=== PATIENT | male | born 1945 | race Caucasian/White ===

== ENCOUNTER 2019-09-30 10:42 | Emergency (ER) | payer MEDICARE, OTHER, SELFPAY ==
--- NOTE | 2019-09-30 10:56 | ED.URI ---
HPI - URI/Sore Throat General Chief Complaint: Upper Respiratory Infection Stated Complaint: Possible Sinus infection Time Seen by Provider: 09/30/19 11:00 Source: patient and RN notes reviewed Mode of arrival: ambulatory Limitations: no limitations History of Present Illness HPI Narrative: 74-year-old male presents with concern for 1 week history of nasal congestion, hoarseness, postnasal drainage. Reports yellow-colored phlegm. Denies taking hgjn-oed-veychnx medications for his symptoms. Denies taking any medicines for seasonal allergies. Denies fever, body aches, reports occasional sweats. MD elicited complaint: nasal congestion Related Data Home Medications Medication Instructions Recorded Confirmed finasteride mg 09/30/19 rivaroxaban [Xarelto] mg 09/30/19 tamsulosin mg PO 09/30/19 varenicline [Chantix] mg 09/30/19 Allergies Allergy/AdvReac Type Severity Reaction Status Date / Time No Known Allergies Allergy Unverified 04/13/15 16:20 Review of Systems Review of Systems: Narrative: CONSTITUTIONAL: Denies malaise, chills, or fever. Reports sweats EYES: Denies visual changes, redness, or discharge. ENT: Reports rhinorrhea, congestion. Denies sinus pain, otalgia and sore throat. CARDIOVASCULAR: Denies chest pain, palpitations, or edema. RESPIRATORY: Reports occasional cough. Denies dyspnea. GASTROINTESTINAL: Denies abdominal pain, nausea, vomiting, diarrhea SKIN: Denies rash or itching. MUSCULOSKELETAL: Denies myalgia. NEUROLOGIC: Denies headache. All systems reviewed & are unremarkable except as noted in HPI and below PMFSH Family History Family History (Updated 01/11/14 @ 07:13 by DOCTOR UNKNOWN) Father Family history of malignant neoplasm Sibling Family history of malignant neoplasm Social History Social History Smoking status: Former smoker Alcohol intake: never Comments At time of signature, agree with nursing past medical, surgical, social and family history. There is no relevant family history pertinent to the presenting complaint Exam Narrative: Exam Narrative: GENERAL: Well-appearing, well-nourished, and in no acute distress. HEAD: Normocephalic EYES: PERRLA, conjunctivae clear ENT: Nares clear, turbinates edematous and erythematous, yellow discharge. Mucous membranes moist. TM pearly zheng with dull light reflex bilaterally; no tragal tenderness. Oropharynx not erythematous without lesions. Tonsils not enlarged and without exudate, no drooling, no hoarseness, no trismus, uvula midline. NECK: Supple. No lymphadenopathy CHEST: Clear to auscultation, breath sounds equal. No wheezing, rhonchi, rales, or stridor. No respiratory distress, speaks in full sentences. HEART: Regular rate and rhythm. No murmur heard. SKIN: Warm, dry, no rash. NEURO: Alert and oriented x3. PSYCH: Normal mood and affect Course Course Emergency Course: Patient is aware of diagnosis, understands and agrees to treatment plan. Anticipatory guidance given. Patient agrees to follow-up as directed and is aware of reasons to seek care at the emergency department. Portions of this record may have been created with voice recognition software Vital Signs Vital signs: Vital Signs Temperature 98.4 F 09/30/19 11:00 Pulse Rate 86 09/30/19 11:00 Respiratory Rate 16 09/30/19 11:00 Blood Pressure 149/76 H 09/30/19 11:00 Pulse Oximetry 98 09/30/19 11:00 Temperature 98.4 F 09/30/19 11:00 Pulse Rate 86 09/30/19 11:00 Respiratory Rate 16 09/30/19 11:00 Blood Pressure 149/76 H 09/30/19 11:00 Pulse Oximetry 98 09/30/19 11:00 Reviewed. Patient has history of hypertension MDM - URI/Sore Throat MDM Narrative Medical decision making narrative: Differential diagnosis considered: Strep pharyngitis, allergic rhinitis, upper respiratory tract infection, sinusitis, rhinosinusitis, nasopharyngitis. viral pharyngitis, otitis media, otitis externa, pneumonia, bronchitis, viral cough syndrome, vir
[2019-09-30 11:00] VITALS: BP 149/76; PULSE 86; RESP 16; TEMP 36.9; O2SAT 98
== END 2019-09-30 11:15 | disposition home or self-care (01) ==
PROVIDERS: Emergency Provider Nurse Practitioner; PCP Family Medicine
DX: J01.80 Other acute sinusitis (principal); E78.00 Pure hypercholesterolemia, unspecified
CPT/HCPCS: 99213; G0463

== ENCOUNTER 2020-06-17 13:26 | Outpatient (CLI) | payer MEDICARE, SELFPAY ==
--- NOTE | ~2020-06-17 | US_ITS ---
EXAMINATION: US venous doppler LE EXAM DATE: 06/17/2020 14:15 INDICATION: Right calf pain. TECHNIQUE: Multiple grayscale, color flow and Doppler images of the lower extremity deep venous syste ms bilaterally were obtained and reviewed. There is no prior study for comparison. FINDINGS: Right side: The right common femoral, femoral and profunda veins demonstrate normal color flow, respi ratory variation, augmentation and compressibility. Compressibility, color flow confirmed within the right popliteal, posterior tibial, peroneal, and greater saphenous veins. Left side: The left common femoral, femoral and profunda veins demonstrate normal color flow, respira tory variation, augmentation and compressibility. Compressibility, color flow confirmed within the l eft popliteal, posterior tibial, peroneal, and greater saphenous veins. IMPRESSION: 1. No lower extremity deep venous thrombosis bilaterally. Reviewed, dictated and finalized at location B. OL ADMINISTRATOR
--- NOTE | ~2020-06-17 | XR_ITS ---
EXAMINATION: XR knee LT 2V DATE: 06/17/2020 13:53 INDICATION: Medial left knee pain. TECHNIQUE: 2 views of left knee were obtained. COMPARISON: None. FINDINGS: Bone alignment is normal. No fracture. There is mild tricompartmental osteoarthritis. No kn ee joint effusion. IMPRESSION: 1. Mild left knee osteoarthritis. Reviewed, dictated and finalized at location A. ALK DEVELOPER
== END 2020-06-17 13:27 | disposition home or self-care (01) ==
LOC: ANHIMG 13:35
PROVIDERS: PCP Family Medicine; Visit Provider Physician Assistant Medical
DX: M17.12 Unilateral primary osteoarthritis, left knee (principal)
CPT/HCPCS: 73560; 93970

== ENCOUNTER 2021-09-30 16:36 | Emergency (ER) | payer MEDICARE, SELFPAY ==
[2021-09-30 16:52] VITALS: BP 134/72; PULSE 114; RESP 18; TEMP 36.4; O2SAT 98
--- NOTE | 2021-09-30 17:06 | ED.GENADULT ---
HPI - General Adult General Chief complaint: Fall Stated complaint: Lower Back Pain due to fall,Cough Time Seen by Provider: 09/30/21 17:30 Mode of arrival: ambulatory Limitations: no limitations History of Present Illness HPI narrative: 76-year-old male presents with multiple complaints. Reports low back pain after falling off and extension ladder on . Reports he hit the ground and is having bilateral low back pain. He also reports that he has been having a productive cough that causes his ribs to hurt when he coughs, reports symptoms started over 1 week ago.. Reports he has been using IcyHot for his back and bedu-uze-ujqhyhw allergy medicine for his cough. He denies fever, chills, sweats, sore throat. Reports postnasal drainage and scratchy throat MD complaint: Cough Related Data Home Medications Medication Instructions Recorded Confirmed rivaroxaban [Xarelto] 2.5 mg PO BID 09/30/19 07/30/21 aspirin 81 mg tablet,delayed 81 mg PO DAILY 07/30/21 09/30/21 release benazepril 10 mg PO DAILY 09/30/21 Allergies Allergy/AdvReac Type Severity Reaction Status Date / Time No Known Allergies Allergy Verified 09/30/21 17:34 Review of Systems Review of Systems: CONSTITUTIONAL: Denies malaise, chills, sweats, or fever. EYES: Denies visual changes, redness, or discharge. ENT: Reports rhinorrhea, scratchy throat. Denies congestion, sinus pain, otalgia or sore throat. CARDIOVASCULAR: Denies chest pain, palpitations, or edema. RESPIRATORY: Reports productive cough. Denies dyspnea. SKIN: Denies rash or itching. MUSCULOSKELETAL: Reports bilateral low back pain. Denies joint pain, or myalgia. NEUROLOGIC: Denies numbness, weakness, or headache. All systems reviewed & are unremarkable except as noted in HPI and below [facility] Past Medical History Medical History BMI 29.0-29.9,adult BMI 30.0-30.9,adult BMI 31.0-31.9,adult Tobacco abuse Surgical History Surgical History Hx of cataract surgery Family History Family History Father Family history of malignant neoplasm Sibling Family history of malignant neoplasm Mother Social History Social History Second hand tobacco smoke exposure: Yes Alcohol intake: current Substance use: never Substance use type: does not use Additional occupation/education comments: [place] [employer]. Gender identity (if verbalized by the patient): Male Comments At time of signature, agree with nursing past medical, surgical, social and family history. There is no relevant family history pertinent to the presenting complaint Exam Narrative: GENERAL: Well-appearing, well-nourished, and in no acute distress. HEAD: Normocephalic, atraumatic. EYES: PERRLA, sclera clear, and EOMI. No nystagmus. ENT: Nares clear, clear discharge. Mucous membranes moist. Oropharynx mildly erythematous without lesions. Tonsils not enlarged and without exudate. NECK: Supple. No lymphadenopathy. CHEST: No respiratory distress. Clear to auscultation. No bony deformities, no asymmetry. Speaks in full sentences. HEART: Regular rate and rhythm. No murmur heard. Normal peripheral pulses. MUSCULOSKELETAL: Grossly normal range of motion and strength in all extremities; 5/5 strength with hip flexion and extension, dorsiflexion and extension, knee flexion and extension, plantar flexion and extension. Normal sensation in dermatomal distributions with sensitivity to light touch and pain. No midline back tenderness to palpation. No paraspinal tenderness. Transfers from lying to sitting to standing. SKIN: Warm, dry, no rash. No ecchymosis, erythema, open wounds to back. NEURO: No focal deficits. Alert and oriented x3. Reflexes intact. Normal gait. PSYCH:
== END 2021-09-30 17:50 | disposition home or self-care (01) ==
PROVIDERS: Emergency Provider Nurse Practitioner; PCP Family Medicine
DX: M54.50 Low back pain, unspecified (principal); J40 Bronchitis, not specified as acute or chronic; E78.00 Pure hypercholesterolemia, unspecified; Z86.711 Personal history of pulmonary embolism; Z95.1 Presence of aortocoronary bypass graft
CPT/HCPCS: 99213; G0463

== ENCOUNTER 2022-04-22 10:19 | Emergency (ER) | payer MEDICARE, SELFPAY ==
[2022-04-22 10:36] VITALS: BP 128/59; PULSE 90; RESP 24; TEMP 36.7; O2SAT 98
--- NOTE | 2022-04-22 11:01 | ED.URI ---
HPI - URI/Sore Throat General Chief Complaint: Upper Respiratory Infection Stated Complaint: Cough,Congestion,Sore Throat Time Seen by Provider: 04/22/22 10:43 Source: patient Mode of arrival: ambulatory Limitations: no limitations History of Present Illness HPI Narrative: Patient presents today with a 2 day history of productive cough, sore throat cough chest tightness, postnasal drip, rhinorrhea. Denies fever. He has been using his 's nebulizer treatments without relief. He has tried no nuha-pgi-lqbaczq treatment prior to arrival. Denies any history of COPD or asthma. He had a negative home COVID-19 test yesterday. Related Data Home Medications Medication Instructions Recorded Confirmed aspirin 81 mg tablet,delayed 81 mg PO DAILY 07/30/21 04/22/22 release (Adult Aspirin Regimen) benazepril 10 mg tablet 10 mg PO DAILY 09/30/21 04/22/22 Allergies Allergy/AdvReac Type Severity Reaction Status Date / Time No Known Allergies Allergy Verified 04/22/22 10:48 Review of Systems Review of Systems: CONSTITUTIONAL: Denies body aches, fever, chills, or sweats. EYES: Denies visual changes, redness, or discharge. ENT: Denies congestion, or otalgia.+ sore throat, rhinorrhea, postnasal drip CARDIOVASCULAR: Denies chest pain, palpitations, or edema. RESPIRATORY: Denies dyspnea.+ cough, chest tightness GASTROINTESTINAL: Denies abdominal pain, nausea, vomiting, or diarrhea. GENITOURINARY: Denies dysuria or hematuria. SKIN: Denies rash, itching, or wounds. MUSCULOSKELETAL: Denies back pain, joint pain, or myalgia. NEUROLOGIC: Denies headache, numbness, tingling, or weakness. PSYCH: Denies depression or anxiety. [facility] Past Medical History Medical History BMI 29.0-29.9,adult BMI 30.0-30.9,adult BMI 31.0-31.9,adult Tobacco abuse Surgical History Surgical History Hx of cataract surgery Family History Family History Father Family history of malignant neoplasm Sibling Family history of malignant neoplasm Mother Social History Social History Second hand tobacco smoke exposure: Yes Alcohol intake: current Substance use: never Substance use type: does not use Additional occupation/education comments: [employer]. Gender identity (if verbalized by the patient): Male Comments At time of signature, I have reviewed and agree with nursing past medical, surgical, social and family history unless otherwise noted. Please see nursing chart for further information. There is no relevant family history pertinent to the presenting complaint Exam Narrative: GENERAL: Mildly ill-appearing, well-nourished, and in no acute distress. HEAD: Normocephalic, atraumatic. EYES: EOMI. No redness or drainage. Conjunctivae normal. ENT: Mucous membranes pink and moist. Nares clear. No rhinorrhea. TMs normal bilaterally. Throat mildly erythematous without edema or exudate. Uvula midline. NECK: Normal AROM. Supple. No lymphadenopathy. CHEST: No respiratory distress. Clear to auscultation. HEART: Regular rate and rhythm. No murmur appreciated. Normal peripheral pulses. EXTREMITIES: Normal range of motion. No edema. SKIN: Warm, dry, no rash. Capillary refill normal. Normal skin turgor. NEURO: No focal deficits. Alert and oriented x3. Gait steady. PSYCH: Normal affect. No signs of depression or anxiety. Course Course Level of Care: Express Care Visit Vital Signs Vital signs: Vital Signs Temperature 98.0 F 04/22/22 10:36 Pulse Rate 90 04/22/22 10:36 Respiratory Rate 24 H 04/22/22 10:36 Blood Pressure 128/59 L 04/22/22 10:36 Pulse Oximetry 98 04/22/22 10:36 Oxygen Delivery Room Air 04/22/22 10:36 Temperature
== END 2022-04-22 11:32 | disposition home or self-care (01) ==
PROVIDERS: Emergency Provider Nurse Practitioner; PCP Family Medicine
DX: J06.9 Acute upper respiratory infection, unspecified (principal); Z79.82 Long term (current) use of aspirin; E78.00 Pure hypercholesterolemia, unspecified; Z86.711 Personal history of pulmonary embolism; Z95.1 Presence of aortocoronary bypass graft
CPT/HCPCS: 99213; G0463

== ENCOUNTER 2022-07-09 00:28 | Day surgery (SDC) | payer MEDICARE, SELFPAY ==
[2022-07-08 12:12] VITALS: BMI 30.6
[2022-07-09] VITALS (11 sets, daily range): BP systolic 108–140; BP diastolic 57–82; PULSE 74–91; RESP 18–24; TEMP 36.9; O2SAT 94–98; BMI 31.2
[2022-07-09] MEDS: SODIUM CHLORIDE 0.9% IV 1,000 ML 30 ML IV CONT (10:50)
[2022-07-09 11:02] LABS: Anion Gap 5 mmol/L (8-16); Blood Urea Nitrogen 13 mg/dL (9-20); Calcium 8.4 mg/dL (8.4-10.2); Carbon Dioxide 25 mmol/L (22-30); Chloride 105 mmol/L (98-107); Estimated CRCL calculation 73 ml/min; Estimated Glomerular Filt Rate > 60; Glucose 95 mg/dL (65-110); Magnesium 2.1 mg/dL (1.6-2.3); Sodium 135 mmol/L (137-145)
--- NOTE | 2022-07-09 11:30 | PM.IMHP ---
H&P: HPI History of Present Illness Date/Time: 07/09/22 11:30 Chief Complaint: Atrial fibrillation Narrative: 77-year-old with CAD found to be in atrial fibrillation in office. Start anticoagulation here today for cardioversion Review of Systems Review of Systems: All systems reviewed & are unremarkable except as noted in HPI and below ENT: Denies Normal hearing present Cardiovascular: Cardiovascular: Denies chest pain PMFSH Past Medical History Medical History BMI 29.0-29.9,adult BMI 30.0-30.9,adult BMI 31.0-31.9,adult Tobacco abuse Surgical History Surgical History Hx of cataract surgery Family History Family History Father Family history of malignant neoplasm Sibling Family history of malignant neoplasm Mother Social History Social History Smoking packs per day: 0.5 Smoking cigarettes per day: 10.0 Years smoked: 45 Smoking pack-years: 22.50 Smoking status: Current every day smoker Tobacco type: cigarettes Second hand tobacco smoke exposure: Yes Alcohol intake: current Alcohol use details: 6-8 beers per year Substance use: never Substance use type: does not use Living arrangements: with family Occupation/Education: retired Additional occupation/education comments: [employer]. Gender identity (if verbalized by the patient): Male Spiritual care concerns: No Meds Home Medications and Allergies Home Medications Medication Instructions Recorded Confirmed Type aspirin 81 mg tablet,delayed 81 mg PO BID 07/30/21 07/09/22 History release (Adult Aspirin Regimen) atorvastatin 20 mg tablet 20 mg PO DAILY #90 tabs 04/28/22 07/08/22 Rx benazepril 10 mg tablet 10 mg PO DAILY #90 tabs 04/28/22 07/09/22 Rx finasteride 5 mg tablet 5 mg PO DAILY #90 tabs 04/28/22 07/08/22 Rx tamsulosin 0.4 mg capsule 0.4 mg PO DAILY #90 caps 04/28/22 07/09/22 Rx rivaroxaban 20 mg tablet (Xarelto) 20 mg PO DAILY 07/08/22 07/08/22 History Allergies Allergy/AdvReac Type Severity Reaction Status Date / Time No Known Allergies Allergy Verified 07/09/22 11:05 Vital Signs Vital Signs - 24 hr 07/09/22 10:45 Temperature 36.9 C Pulse Rate 83 Respiratory Rate 20 Blood Pressure 130/82 Pulse Oximetry 96 Oxygen Delivery Room Air Exam Narrative: appears stated age Const: General: comfortable HENMT: Face/Nose/Sinus: Normal nares present Eyes: Sclera: sclerae normal Neck: Neck: not supple Chest: Other: no chest wall pain on palpatio Resp: Effort & Inspection: normal respiratory effort Cardio: Rate: regular rate Rhythm: abnormal rhythm irregularly irregular GI: GI Palp: Yes Soft to palpation Skin: General skin exam: normal color Neuro: Speech: normal speech Extrem: General: normal to inspection Psych: Mental Status: mental status grossly normal H&P: Results Labs Labs: [facility] 07/09/22 10:46 Sodium 135 L Potassium 4.0 Chloride 105 Carbon Dioxide 25 BUN 13 Creatinine 0.90 Glucose 95 Calcium 8.4 Assessment and Plan Assessment and plan (1) Atrial fibrillation: Code(s): I48.91 - Unspecified atrial fibrillation Status: Acute Assessment and Plan: continue anticoagulation. Outpatient elective cardioversion today.
--- NOTE | 2022-07-09 11:32 | WPDMODSED ---
Moderate Sedation Note-Pt Data Patient Data Diagnosis: Atrial fibrillation Present Complaint: atrial fibrillation Procedure to be performed/Plan: elective electrical cardioversion Moderate sedation Allergies Allergy/AdvReac Type Severity Reaction Status Date / Time No Known Allergies Allergy Verified 07/09/22 11:05 Home Medications Medication Instructions Recorded Confirmed Type aspirin 81 mg tablet,delayed 81 mg PO BID 07/30/21 07/09/22 History release (Adult Aspirin Regimen) atorvastatin 20 mg tablet 20 mg PO DAILY #90 tabs 04/28/22 07/08/22 Rx benazepril 10 mg tablet 10 mg PO DAILY #90 tabs 04/28/22 07/09/22 Rx finasteride 5 mg tablet 5 mg PO DAILY #90 tabs 04/28/22 07/08/22 Rx tamsulosin 0.4 mg capsule 0.4 mg PO DAILY #90 caps 04/28/22 07/09/22 Rx rivaroxaban 20 mg tablet (Xarelto) 20 mg PO DAILY 07/08/22 07/08/22 History Current Medications: Active Medications Sodium Chloride (Normal Saline Iv) 1,000 mls @ 30 mls/hr IV CONT .Q24H ROXANA Last Admin: 07/09/22 10:50 Dose: 30 mls/hr Sedation/Anesthesia: No previous sedation/anesthesia problems (including family history). [facility] Past Medical History Medical History BMI 29.0-29.9,adult BMI 30.0-30.9,adult BMI 31.0-31.9,adult Tobacco abuse Surgical History Surgical History Hx of cataract surgery Family History Family History Father Family history of malignant neoplasm Sibling Family history of malignant neoplasm Mother Social History Social History Smoking packs per day: 0.5 Smoking cigarettes per day: 10.0 Years smoked: 45 Smoking pack-years: 22.50 Smoking status: Current every day smoker Tobacco type: cigarettes Second hand tobacco smoke exposure: Yes Alcohol intake: current Alcohol use details: 6-8 beers per year Substance use: never Substance use type: does not use Living arrangements: with family Occupation/Education: retired Additional occupation/education comments: [employer]. Gender identity (if verbalized by the patient): Male Spiritual care concerns: No Mod Sed Physical Exam Physical Exam Pre Procedural Exam: Normal: Appearance, Eyes, Ears, Nose, Neck, Throat, Airway, Lungs, Heart Size, Heart Rate, Neuro Exam, Extremities and Skin and Variation: Heart Rhythm ( irregular irregular) Hours since solid foods: 12 Hours since liquid intake: 12 Mallampati Classification: class II Internal Medicine - PN: Obj Da Vital Signs Vital Signs: Vital Signs - 24 hr 07/09/22 10:45 Temperature 36.9 C Pulse Rate 83 Respiratory Rate 20 Blood Pressure 130/82 Pulse Oximetry 96 Oxygen Delivery Room Air Meds/Results Medications: Active Medications Generic Name Dose Route Start Last Admin Trade Name Freq PRN Reason Stop Dose Admin Sodium Chloride 1,000 mls @ 30 mls/hr 07/09/22 10:00 07/09/22 10:50 Normal Saline Iv IV CONT 30 mls/hr .Q24H ROXANA Administration Labs 07/09/22 10:46 Labs: Laboratory Results - last 24 hr 07/09/22 10:46 Sodium 135 L Potassium 4.0 Chloride 105 Carbon Dioxide 25 Anion Gap 5 L BUN 13 Creatinine 0.90 Estim Creat Clear Calc 73 Estimated GFR > 60 Glucose 95 Calcium 8.4 Magnesium 2.1 ASA Classification/Sedation ASA Classification/Sedation ASA Class: II Emergent: No Risks: Risks, benefits and alternatives explained and patient/family accepted plan for sedation. Patient re-evaluated immediately prior to sedation.
--- NOTE | 2022-07-09 11:45 | ECG_ITS ---
Measurements Intervals [place] Rate: 79 P: OK: 0 QRS: 48 QRSD: 105 T: 4 QT: 363 QTc: 416 Interpretive Statements ATRIAL FIBRILLATION WITH ABERRANT CONDUCTION OR VENTRICULAR PREMATURE COMPLEXES INDETERMINATE AXIS INCOMPLETE RIGHT BUNDLE BRANCH BLOCK [90+ ms QRS DURATION, TERMINAL R IN V1/V2, 40+ ms S IN I/aVL/V4/V5/V6] PROBABLE INFERIOR MYOCARDIAL INFARCTION , PROBABLY OLD [35 ms Q WAVE IN II/aVF] ABNORMAL ECG NO PREVIOUS ECG AVAILABLE FOR COMPARISON Electronically Signed On 07-09-2022 12:06:56 JEWEL BEARING MAKER by Samuel CARDENAS
--- NOTE | 2022-07-09 11:51 | WPDCARDVER ---
Cardioversion Cardioversion Date of procedure: 07/09/22 Procedure: 1. Moderate sedation 2. Electrical cardioversion Pre-op diagnosis: atrial fibrillation Post-op diagnosis: Same Indications: atrial fibrillation Description of procedure: after discussing the risks, benefits alternatives of procedure patient agreeable via verbal and written informed consent. Risks discussed included skin irritation burn, , adverse reaction to anesthesia, shocking into more problematic heart rhythm, stroke. After establishing continuous telemetry monitoring, pulse oxygenation and serial blood pressure assessments, time-out was taken procedure was started. Procedure start time 11:34 a.m. Procedure stop time 11:40 a.m. Complications: None Blood loss: None Sedation: a total of 3 mg of Versed and 50 mcg of fentanyl were given in divided dosages. Medications were administered patient was monitored by Myrna Kiran RN Findings: 2 attempts at restoring sinus rhythm was made. There were no sinus beats following both attempts. First shock was using 175 joules of biphasic synchronized energy and a 2nd shock was using 200 joules of biphasic synchronized energy. Conclusion: 1. Unsuccessful outpatient elective electrical cardioversion with 2 attempts made as above. 2. Moderate sedation Plan: Patient will remain on Xarelto. Will pursue rate control strategy as he is relatively asymptomatic anyway. Will see him in the office in a couple of weeks in order sleep study as well as an echocardiogram and stress test. Patient is having frequent PVCs also. Will also consider outpatient monitor to ensure rate control.
== END 2022-07-09 13:07 | disposition home or self-care (01) ==
PROVIDERS: PCP Family Medicine; Visit Provider Internal Medicine Cardiovascular Disease
PROC: 5A2204Z Restoration of Cardiac Rhythm, Single (ICD-10-PCS; principal; 2022-07-09 11:30)
DX: I48.91 Unspecified atrial fibrillation (principal); I25.10 Atherosclerotic heart disease of native coronary artery without angina pectoris; F17.210 Nicotine dependence, cigarettes, uncomplicated; Z79.82 Long term (current) use of aspirin; Z79.01 Long term (current) use of anticoagulants
CPT/HCPCS: 36415; 80048; 83735; 92960; J2250; J3010; J7030

== ENCOUNTER 2022-09-01 18:38 | Emergency (ER) | payer MEDICARE, SELFPAY ==
--- NOTE | ~2022-09-01 | XR_ITS ---
XR chest 2V INDICATION: Productive cough and congestion TECHNIQUE: 2 view chest. FINDINGS: Comparison to multiple prior studies sequentially, with oldest reviewed study dated 2023. There is mild bilateral interstitial prominence and peribronchial cuffing. There is no focal consoli dation, pleural effusion, or pneumothorax. The cardiomediastinal silhouette is normal. There is an age-indeterminate wedge compression fracture of T7. Osteopenia. Status post median sternotomy for CABG. IMPRESSION: 1. Findings most consistent with bronchiolitis versus an atypical or viral pneumonia. Reviewed, dictated and finalized at location A. IMPRESSION: 1. Findings most consistent with bronchiolitis versus an atypical or viral [facility]ne [facility] hospital.
[2022-09-01 18:48] VITALS: BP 144/84; PULSE 82; RESP 16; TEMP 36.8; O2SAT 98
--- NOTE | 2022-09-01 19:04 | ED.URI ---
HPI - URI/Sore Throat General Chief Complaint: Upper Respiratory Infection Stated Complaint: congestion,cough Time Seen by Provider: 09/01/22 19:04 Source: patient Mode of arrival: ambulatory Limitations: no limitations History of Present Illness HPI Narrative: 77-year-old male presents with complaint of cough, shortness of breath with exertion for the past several weeks. Reports that he called his primary care physician about 3 weeks ago and told him his symptoms and was given a Z-Shahram. Patient he states that at times he thought that he had bronchitis and that is when he told them over the phone. States that he has had in the past. states that he never got better with the Z-Shahram. Has been using albuterol inhaler daily. Afebrile. No shortness of breath at this time. Patient again states that he thinks he has bronchitis. No recent chest x-rays. Patient is a current everyday smoker. All systems reviewed and negative except as noted above. Related Data Home Medications Medication Instructions Recorded Confirmed aspirin 81 mg tablet,delayed 81 mg PO BID 07/30/21 09/01/22 release (Adult Aspirin Regimen) rivaroxaban 20 mg tablet (Xarelto) 10 mg PO DAILY 07/08/22 09/01/22 Allergies Allergy/AdvReac Type Severity Reaction Status Date / Time No Known Allergies Allergy Verified 09/01/22 18:50 Review of Systems Review of Systems: CONSTITUTIONAL: Denies fever, chills, or sweats. EYES: Denies visual changes, redness, or discharge. ENT: Denies rhinorrhea, congestion, sore throat, or otalgia. CARDIOVASCULAR: Denies chest pain, palpitations, or edema. RESPIRATORY: Reports cough, chest congestion, shortness of breath with exertion. GASTROINTESTINAL: Denies abdominal pain, nausea, vomiting, or diarrhea. GENITOURINARY: Denies dysuria or hematuria. SKIN: Denies rash or itching. MUSCULOSKELETAL: Denies back pain, joint pain, or myalgia. NEUROLOGIC: Denies headache, numbness, or weakness. PSYCHIATRIC: Denies anxiety or depression. All other systems reviewed are negative, except as documented in HPI. [facility] Past Medical History Medical History BMI 29.0-29.9,adult BMI 30.0-30.9,adult BMI 31.0-31.9,adult Tobacco abuse Surgical History Surgical History Hx of cataract surgery Family History Family History Father Family history of malignant neoplasm Sibling Family history of malignant neoplasm Mother Social History Social History Smoking packs per day: 0.5 Smoking cigarettes per day: 10.0 Years smoked: 45 Smoking pack-years: 22.50 Smoking status: Current every day smoker Tobacco type: cigarettes Second hand tobacco smoke exposure: Yes Alcohol intake: current Alcohol use details: 6-8 beers per year Substance use: never Substance use type: does not use Living arrangements: with family Occupation/Education: retired Additional occupation/education comments: [employer]. Gender identity (if verbalized by the patient): Male Spiritual care concerns: No Comments At time of signature, agree with nursing past medical, surgical, social and family history. There is no relevant family history pertinent to the presenting complaint. Exam Narrative: GENERAL: This is a well-nourished, well-developed patient, in no apparent distress. HEAD: normocephalic, atraumatic. EYES: PERRL. Sclera clear/white. Vision is grossly intact. EARS: External ears normal, auditory canals clear and without drainage, TMs normal without perforation. Hearing grossly intact. NOSE: External nose normal with no obvious nasal discharge, nares without redness, no rhinorrhea. THROAT: Mucous membranes moist, Erythematous and swollen. Patient denies pain. NECK:
== END 2022-09-01 19:36 | disposition home or self-care (01) ==
PROVIDERS: Emergency Provider Nurse Practitioner Family; PCP Family Medicine
DX: J20.9 Acute bronchitis, unspecified (principal); F17.210 Nicotine dependence, cigarettes, uncomplicated; Z79.82 Long term (current) use of aspirin
CPT/HCPCS: 71046; 99213; G0463

== ENCOUNTER 2022-10-06 00:32 | Day surgery (SDC) | payer MEDICARE, SELFPAY ==
[2022-10-05 16:03] VITALS: BMI 31.6
[2022-10-06] VITALS (9 sets, daily range): BP systolic 104–135; BP diastolic 66–89; PULSE 61–74; RESP 14–21; TEMP 36.4; O2SAT 95–98; BMI 31.6
[2022-10-06 07:25] LABS: Basophils Percent Auto 0.4 % (0.2-1.2); Eosinophils Absolute Auto 0.3 K/mm3 (0-0.3); Hematocrit 49.3 % (42.0-52.0); Hemoglobin 16.1 g/dL (14.0-18.0); Immature Granulocyte Absolute 0.02 K/mm3 (0.00-0.031); Immature Granulocyte Percent A 0.3 % (0-0.5); Immature Platelet Fraction Pct 6.3 % (0.9-11.2); Lymphocytes Percent Auto 24.9 % (18.3-44.2); Mean Corpuscular HGB Conc 32.7 g/dl (32-36); Mean Corpuscular Hemoglobin 30.4 pg (26-34); Mean Corpuscular Volume 93.2 fl (80-100); Mean Platelet Volume 10.8 fl (7.4-10.4); Monocytes Absolute Auto 0.7 K/mm3 (0.1-0.6); Monocytes Percent Auto 9.7 % (2.6-8.5); Neutrophils Absolute Auto 4.2 K/mm3 (1.3-6.7); Neutrophils Percent Auto 60.7 % (45.5-73.1); Platelet Count Result 150 k/mm3 (150-375); Red Blood Count 5.29 M/mm3 (4.6-6.20); Red Cell Distribution Width 12.7 % (11.5-14.5); White Blood Count 6.8 K/mm3 (4.5-10.0)
[2022-10-06 07:38] LABS: Anion Gap 4 mmol/L (8-16); Blood Urea Nitrogen 21 mg/dL (9-20); Calcium 8.5 mg/dL (8.4-10.2); Carbon Dioxide 30 mmol/L (22-30); Chloride 106 mmol/L (98-107); Estimated CRCL calculation 67 ml/min; Estimated Glomerular Filt Rate > 60; Glucose 98 mg/dL (65-110); Potassium 4.6 mmol/L (3.4-5.0); Sodium 140 mmol/L (137-145)
--- NOTE | 2022-10-06 09:57 | WPDHPUPDATE1 ---
History and Physical Update Update Date/Time: 10/06/22 09:57 History and Physical has been reviewed, including an updated exam of the patient. There are NO changes in the patient's condition. Risks, benefits, and alternatives have been discussed and questions answered. Patient agrees to proceed with procedure.
--- NOTE | 2022-10-06 09:57 | WPDMODSED ---
Moderate Sedation Note-Pt Data Patient Data Diagnosis: Coronary artery disease, CABG Present Complaint: Abnormal stress test Procedure to be performed/Plan: Coronary angiography, left heart cath, bypass graft angiography, +/- PCI Allergies Allergy/AdvReac Type Severity Reaction Status Date / Time No Known Allergies Allergy Verified 10/06/22 07:12 Home Medications Medication Instructions Recorded Confirmed Type aspirin 81 mg tablet,delayed 81 mg PO BID 07/30/21 10/05/22 History release (Adult Aspirin Regimen) atorvastatin 20 mg tablet 20 mg PO DAILY #90 tabs 04/28/22 10/05/22 Rx benazepril 10 mg tablet 10 mg PO DAILY #90 tabs 04/28/22 10/05/22 Rx finasteride 5 mg tablet 5 mg PO DAILY #90 tabs 04/28/22 10/05/22 Rx tamsulosin 0.4 mg capsule 0.4 mg PO DAILY #90 caps 04/28/22 10/05/22 Rx rivaroxaban 20 mg tablet (Xarelto) 10 mg PO DAILY 07/08/22 10/05/22 History albuterol sulfate 90 mcg/actuation 2 puff inhalation QID PRN 09/01/22 10/05/22 Rx aerosol inhaler shortness of breath or wheezing #8.5 grams benzonatate 200 mg capsule 200 mg PO TID PRN cough #20 caps 09/01/22 10/05/22 Rx inhalational spacing device #1 ea 09/01/22 Rx (Aerochamber Plus Z Stat spacer) guaifenesin 1,200 mg tablet, 1,200 mg PO BID PRN Cough 10/05/22 10/05/22 History extended release 12 hr (Mucinex) metoprolol succinate 25 mg 25 mg PO DAILY 10/05/22 10/05/22 History tablet,extended release 24 hr Current Medications: Active Medications Sodium Chloride (Normal Saline Iv) 500 mls @ 100 mls/hr IV CONT .Q5H ROXANA Sodium Chloride (Normal Saline Iv) 1,000 mls @ 125 mls/hr IV CONT .Q8H ONE Stop: 10/06/22 17:54 Sedation/Anesthesia: No previous sedation/anesthesia problems (including family history). [facility] Past Medical History Medical History BMI 29.0-29.9,adult BMI 30.0-30.9,adult BMI 31.0-31.9,adult Tobacco abuse Surgical History Surgical History Hx of cataract surgery Family History Family History Father Family history of malignant neoplasm Sibling Family history of malignant neoplasm Mother Social History Social History Smoking packs per day: 0.5 Smoking cigarettes per day: 10.0 Years smoked: 22 Smoking pack-years: 11.00 Smoking status: Light tobacco smoker Tobacco type: cigarettes Second hand tobacco smoke exposure: Yes Alcohol intake: current Alcohol use details: 8-9 beer/year or less Substance use: never Substance use type: does not use Living arrangements: with family Occupation/Education: retired Additional occupation/education comments: [employer]. Gender identity (if verbalized by the patient): Male Spiritual care concerns: No Mod Sed Physical Exam Physical Exam Pre Procedural Exam: Normal: Appearance, Lungs, Heart Rate, Heart Rhythm, Neuro Exam, Abdomen, Extremities and Skin Hours since solid foods: 12 Hours since liquid intake: 8 Mallampati Classification: class III Internal Medicine - PN: Obj Da Vital Signs Vital Signs: Vital Signs - 24 hr 10/06/22 07:14 Temperature 36.4 C Pulse Rate 66 Respiratory Rate 14 Blood Pressure 135/69 Pulse Oximetry 98 Oxygen Delivery Room Air Meds/Results Medications: Active Medications Generic Name Dose Route Start Last Admin Trade Name Lauriq PRN Reason Stop Dose Admin Sodium Chloride 500 mls @ 100 mls/hr 10/06/22 07:00 Normal Saline Iv IV CONT .Q5H ROXANA Sodium Chloride 1,000 mls @ 125 mls/hr 10/06/22 09:55 Normal Saline Iv IV CONT 10/06/22 17:54 .Q8H ONE Labs 10/06/22 07:11 10/06/22 07:11 Labs: Laboratory Results - last 24 hr 10/06/22 07:11 WBC 6.8 RBC 5.29 Hgb 16.1 Hct 49.3 MCV 93.2 MCH 3
--- NOTE | 2022-10-06 09:58 | WPDCARDPROC ---
Cardiac Cath Procedure Note Date of procedure:: 10/06/22 Performing physician:: CATHETERIZATION LABORATORY REPORT Procedure Date: 10/06/2022 Data Warehouse Analyst: Chani Benavides M.D., [facility]? Referring Physician: Santiago Christianson M.D. ? Anesthesia: Versed and Fentanyl were ordered and given in my presence at 08:47, procedure ended at 09:48. Supervision of nurse monitored moderate sedation with Versed and Fentanyl was provided for 61 minutes. Total of Versed 1mg and Fentanyl 25mcg were administered by the Medical Doctor Md RN Anh Corey. Pre-op Diagnosis: Coronary artery disease s/p CABG Post-op Diagnosis: 1. Severe [place] multivessel coronary artery disease 2. Patent MUHAMMAD-LAD bypass graft 3. Patent SVG-OM bypass graft 4. Patent radial artery to RCA bypass graft 5. Elevated left ventricular end-diastolic pressure of 29mmHg Procedure(s): 1. Moderate sedation 2. Ultrasound-guided access of the right common femoral artery 3. Coronary angiography 4. Bypass graft angiography 5. Left heart cath 6. Angioseal closure of the right common femoral artery Access Site: Right common femoral artery Brief History and Clinical Indications: Patient is a 77-year-old male with CAD s/p CABG who is referred for [facility] for abnormal stress test. All risks, benefits and alternatives to left heart catheterization with or without percutaneous coronary intervention was discussed at length with the patient. Risk of complications including but not limited to bleeding, infection, arrhythmia, stroke, worsening kidney function, blood loss, groin hematoma, limb loss, emergency coronary artery bypass grafting, and even were discussed with the patient and all questions were answered. The patient understood and wished to proceed. Time out called, patient name, date of , medical record number, allergies, procedure performed, identify Data Warehouse Analyst, patient and staff member concurred with accurate data, procedure carried on. Findings: LEFT HEART CATHETERIZATION FINDINGS: 1. Left main: The left main coronary artery is very short and appears to be diffusely diseased. 2. Left anterior descending: The LAD is AUTO FLEET MAINTENANCE MANAGER in its proximal portion. 3. Ramus: There is a small caliber Ramus branch with diffuse disease 4. Left circumflex: The left circumflex artery has mild diffuse disease. There is an OM vessel which does not have significant obstructive disease. There is retrograde filling from the OM vessel into the SVG bypass graft. 5. Right coronary artery: The RCA is the dominant vessel. The RCA is AUTO FLEET MAINTENANCE MANAGER in its proximal portion. There are [id number] collaterals supplying the RPDA vessel. 6. Left ventricle: A. End-diastolic pressure 29mmHg. B. LV gram deferred. C. No significant gradient across aortic valve on catheter pullback. 7. Bypass graft angiography: A. MUHAMMAD to LAD bypass graft is widely patent without any obstructive disease. Provides antegrade and retrograde flow into the LAD. B. SVG to OM bypass graft is widely patent without any obstructive disease. Provides antegrade flow to the distal OM and retrograde flow into mid OM and LCX vessel. C. Radial artery to RCA bypass graft is widely patent Description of Procedure: Informed consent signed and placed in the chart. Patient transferred to catheter builder room. Prepped and draped in usual sterile fashion. 2% lidocaine in right groin area. Micropuncture needle used to access right common femoral artery with Seldinger technique under fluoroscopic guidance. J wire advanced, micropuncture cannula placed. Right iliofemoral angiogram performed, access confirmed and micropuncture cannula exchanged for 5-FR sheath. 5F FL 5 diagnostic catheter engaged Left Main Coronary Artery. 5F FR 4 diagnostic catheter engaged in the SVG to OM bypass graft. 5F IM diagnostic catheter engaged in the MUHAMMAD to LAD bypass graft. Multiple orthogonal angiogram obtained and reviewed Difficult to engage [place] RCA and the radial artery to RCA
== END 2022-10-06 12:50 | disposition home or self-care (01) ==
PROVIDERS: PCP Family Medicine; Visit Provider Internal Medicine
PROC: 4A023N7 Measurement of Cardiac Sampling and Pressure, Left Heart, Percutaneous Approach (ICD-10-PCS; CPT 93459; principal; 2022-10-06 08:30)
DX: I25.10 Atherosclerotic heart disease of native coronary artery without angina pectoris (principal); Z95.1 Presence of aortocoronary bypass graft; E78.5 Hyperlipidemia, unspecified; I10 Essential (primary) hypertension; Z72.0 Tobacco use; I48.91 Unspecified atrial fibrillation
CPT/HCPCS: 36415; 80048; 85025; 85055; 85610; 93459; A9270; C1760; C1769; C1887; C1894; G0269; J1644; J2250; J3010; J7040

== ENCOUNTER 2022-10-13 08:18 | Outpatient (CLI) | payer MEDICARE, SELFPAY ==
--- NOTE | 2022-10-22 15:04 | WPDSLEEPSTUD ---
Sleep Study Date of Study: 10/13/22 Ordering Provider: Samuel Christianson MD Interpreting Physician: Ina Scanlon MD Sleep Study Type: Split Polysomnogram Height: 1.78 m Weight: 98.883 kg Body Mass Index: 31.2 Neck Circumference (inches): 16.5 [place]: 4 Reason for Sleep Study Hypersomnolence Sleep History Peyman Chadwick is a 77-year-old man with history of coronary artery disease who presents for split night study due to rhythm disturbances. He has had atrial fibrillation with junctional tachycardia, incomplete RBBB. He frequently awakens from sleep short of breath. He does not mention if he awakens at night with heartburn, belching or cough.??He frequently snores. He occasionally snores loudly enough that others complain. He occasionally has breathing problems at night, noted by others or noted personally. He mtz snot report sweating excessively at night or noticing his heart pounding or beating irregularly during the night. He occasionally falls asleep during the day. He never falls asleep involuntarily or falls asleep while driving. He never experiences loss of muscle tone with strong emotion. He never feels paralyzed on waking or falling asleep. He never experiences vivid dreams upon waking or falling asleep. He never feel afraid of going to sleep. He never has nightmares. He occasionally recalls his dreams. He frequently has thoughts racing through his mind. He rarely feels sad or depressed. He frequently feels anxiety or worry about things. He occasionally notices parts of his body jerk. He occasionally kicks during the night. He does not comment on whether or not he has crawling or aching feelings in his legs. He occasionally feels leg pain at night. He never grinds his teeth and never has morning jaw pain. He never feels bothered by pain during the day and is never awakened by pain during the night. He never wakes up feeling stiff, sore, and achy in the morning with pain in his neck, spine, or joints. He reports a 5 lb weight gain in the last year Normal bedtime is around 9:00 p.m. to 10:00 p.m. usually falling asleep easily. He typically gets about 5 hours of sleep per night. His wake up time is variable. He wakes up 3-4 times on an average night. he takes naps in the afternoon or evening. A short nap lasting 10-15 minutes may be refreshing. Most of the time he feels good on awakening. Habits:??Tobacco: Half pack per day Caffeine: 3 servings of coffee. Alcohol: none Recreational substances: none PMF Past Medical History Medical History (Updated 10/22/22 @ 18:52 by Ina Scanlon MD) Atherosclerotic heart disease of [place] coronary artery with angina pectoris 2008 Atrial fibrillation BMI 29.0-29.9,adult BMI 30.0-30.9,adult BMI 31.0-31.9,adult Hypertension Osteoarthritis Tobacco abuse Surgical History Surgical History Hx of cataract surgery Family History Family History Father Family history of malignant neoplasm Sibling Family history of malignant neoplasm Mother Social History Social History Smoking packs per day: 0.5 Smoking cigarettes per day: 10.0 Years smoked: 22 Smoking pack-years: 11.00 Smoking status: Light tobacco smoker Tobacco type: cigarettes Second hand tobacco smoke exposure: Yes Alcohol intake: current Alcohol use details: 8-9 beer/year or less Substance use: never Substance use type: does not use Living arrangements: with family Occupation/Education: retired Additional occupation/education comments: [employer]. Gender identity (if verbalized by the patient): Male Spiritual care concerns: No Medications Home Medications Medication Instructions Recorded Confirmed Type aspirin 81 mg tablet,delayed 81 mg
[2022-10-22 18:19] VITALS: BMI 31.2
== END 2022-10-14 07:04 | disposition home or self-care (01) ==
LOC: ANHCSM 08:20
PROVIDERS: PCP Family Medicine; Visit Provider Internal Medicine Cardiovascular Disease
DX: G47.10 Hypersomnia, unspecified (principal); I48.91 Unspecified atrial fibrillation; G47.33 Obstructive sleep apnea (adult) (pediatric); Z72.821 Inadequate sleep hygiene
CPT/HCPCS: 95811

== ENCOUNTER 2023-03-17 01:08 | Day surgery (SDC) | payer MEDICARE, SELFPAY ==
[2023-03-17 07:22] VITALS: BP 122/72; PULSE 55; RESP 16; TEMP 36.5; O2SAT 98; BMI 30.9
[2023-03-17 07:54] LABS: Anion Gap 5 mmol/L (8-16); Blood Urea Nitrogen 15 mg/dL (9-20); Calcium 8.8 mg/dL (8.4-10.2); Carbon Dioxide 27 mmol/L (22-30); Chloride 105 mmol/L (98-107); Estimated CRCL calculation 73 ml/min; Estimated Glomerular Filt Rate > 60; Glucose 101 mg/dL (65-110); Magnesium 2.2 mg/dL (1.6-2.3); Potassium 4.8 mmol/L (3.4-5.0); Sodium 137 mmol/L (137-145)
--- NOTE | 2023-03-17 09:00 | SUR.PREOP ---
MD had discussion with pt regarding treating his DIANA. Since pt is not compliant with treating his DIANA, MD and pt agreed to abort the electrical cardioversion for now. pt will follow up with MD in office in 2 months. No sedation medications given, pt will be discharged home.
== END 2023-03-17 09:10 | disposition home or self-care (01) ==
PROVIDERS: PCP Family Medicine; Visit Provider Internal Medicine Cardiovascular Disease
PROC: 5A2204Z Restoration of Cardiac Rhythm, Single (ICD-10-PCS; principal; 2023-03-17 08:30)
DX: I48.91 Unspecified atrial fibrillation (principal); Z53.8 Procedure and treatment not carried out for other reasons
CPT/HCPCS: 36415; 80048; 83735; 99213; G0463; J2250; J3010; J7030

== ENCOUNTER 2023-05-25 17:38 | Emergency (ER) | payer MEDICARE, SELFPAY ==
--- NOTE | ~2023-05-25 | XR_ITS ---
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 RESULT: Lines, tubes, and devices: Intact sternotomy wires. Mediastinal surgical clips. Abandoned epicardial pacing wires. Lungs and pleura: Mild bilateral reticular opacities with cuffing. Patchy groundglass perihilar opac ities. Streaky bibasilar atelectasis or scar. Trace right posterior ethmoid angle blunting. Cardiomediastinal silhouette: Stable. Other: No acute osseous or upper abdominal finding. IMPRESSION: Pulmonary opacities may represent pulmonary edema. Infection is not excluded. Trace right pleural eff usion versus chronic pleural scar. Reviewed, dictated and finalized at location K. R SCOOTER MECHANIC IMPRESSION: Pulmonary opacities may represent pulmonary edema. Infection is not excluded. T race right pleural effusion versus chronic pleural scar.
--- NOTE | 2023-05-25 17:49 | ED.URI ---
HPI - URI/Sore Throat General Chief Complaint: Upper Respiratory Infection Stated Complaint: Shortness of Breath, Congestion, Cough Time Seen by Provider: 05/25/23 17:50 Source: patient Mode of arrival: ambulatory Limitations: no limitations History of Present Illness HPI Narrative: 77-year-old male history of AFib, CAD, and HTN presented for c/o cough and nasal congestion for about 10 days. Endorses occasional wheezing and shortness of breath. Denies fatigue, cp, palpitations, n/v/d/f/c. Uses nebulizer occasionally. Not taking anything for symptoms. Tested negative for covid at onset of symptoms. Smokes 1/2ppd. Related Data Home Medications Medication Instructions Recorded Confirmed aspirin 81 mg tablet,delayed 81 mg PO BID 07/30/21 05/25/23 release (Adult Aspirin Regimen) rivaroxaban 20 mg tablet (Xarelto) 10 mg PO DAILY 07/08/22 05/25/23 metoprolol succinate 25 mg 25 mg PO DAILY 10/05/22 05/25/23 tablet,extended release 24 hr Allergies Allergy/AdvReac Type Severity Reaction Status Date / Time No Known Allergies Allergy Verified 05/25/23 17:52 Review of Systems Review of Systems: CONSTITUTIONAL: Denies body aches, fever, chills, or sweats. EYES: Denies visual changes, redness, or discharge. ENT: Reports rhinorrhea, congestion, denies sore throat, or otalgia. CARDIOVASCULAR: Denies chest pain, palpitations, or edema. RESPIRATORY: Reports cough, sob, wheezing. GASTROINTESTINAL: Denies abdominal pain, nausea, vomiting, or diarrhea. GENITOURINARY: Denies dysuria or hematuria. SKIN: Denies rash, itching, or wounds. MUSCULOSKELETAL: Denies back pain, joint pain, or myalgia. NEUROLOGIC: Denies headache, numbness, tingling, or weakness. All systems reviewed & are unremarkable except as noted in HPI and below PMFSH Past Medical History Medical History Atherosclerotic heart disease of [place] coronary artery with angina pectoris 2007 Atrial fibrillation BMI 29.0-29.9,adult BMI 30.0-30.9,adult BMI 31.0-31.9,adult BMI 32.0-32.9,adult Hypertension Osteoarthritis Tobacco abuse Surgical History Surgical History Hx of cataract surgery S/P CABG x 3 Family History Family History Father Family history of malignant neoplasm Sibling Family history of malignant neoplasm Mother Social History Social History Smoking packs per day: 0.5 Smoking cigarettes per day: 10.0 Years smoked: 22 Smoking pack-years: 11.00 Smoking status: Light tobacco smoker Tobacco type: cigarettes Second hand tobacco smoke exposure: Yes Alcohol intake: current Alcohol use details: 8-8 beer/year Substance use: never Substance use type: does not use Living arrangements: with family Occupation/Education: retired Additional occupation/education comments: [employer]. Gender identity (if verbalized by the patient): Male Spiritual care concerns: No Comments At time of signature, I have reviewed and agree with nursing past medical, surgical, social and family history unless otherwise noted. Please see nursing chart for further information. There is no relevant family history pertinent to the presenting complaint Exam Narrative: GENERAL: Well-appearing, in no acute distress. EYES: EOMI. No redness or drainage. Conjunctivae normal. ENT: Mucous membranes pink and moist. Nasal congestion. TMs normal bilaterally. Throat normal. Uvula midline. NECK: Normal AROM. Supple. CHEST: No respiratory distress. Lungs clear to all yee, noted some audible wheezing. HEART: Regular rate and rhythm. No murmur appreciated. EXTREMITIES: Normal range of motion. 2+ bilateral LE edema, reports chronic/baseline SKIN: Warm, dry, no rash. Bruising noted. C
[2023-05-25 17:50] VITALS: BP 145/55; PULSE 56; RESP 20; TEMP 36.3; O2SAT 98
[2023-05-25 18:02] VITALS: BP 145/55; PULSE 56; RESP 20; TEMP 36.3; O2SAT 98
== END 2023-05-25 18:55 | disposition home or self-care (01) ==
PROVIDERS: Emergency Provider Nurse Practitioner Family; PCP Family Medicine
DX: J40 Bronchitis, not specified as acute or chronic (principal); I48.91 Unspecified atrial fibrillation; I25.10 Atherosclerotic heart disease of native coronary artery without angina pectoris; I10 Essential (primary) hypertension; F17.210 Nicotine dependence, cigarettes, uncomplicated; Z79.82 Long term (current) use of aspirin; Z79.01 Long term (current) use of anticoagulants
CPT/HCPCS: 71046; 99213; G0463

== ENCOUNTER → 2023-06-16 08:57 | Outpatient (CLI) | payer MEDICARE, SELFPAY ==
--- NOTE | ~2023-06-16 | XR_ITS ---
XR chest 2V DATE: 06/16/2023 09:11 INDICATION: Cough TECHNIQUE: 2 views COMPARISON: 06/04/2023 2 view chest FINDINGS: Stable moderately prominent anterior wedge compression fracture deformity of approximately T7. Osteopenia. Status post sternotomy and coronary bypass graft surgery. Heart size is borderline. Aortic calcificat ion. Moderate bilateral hyperinflation. There may be minimal infiltrate, atelectasis or fibrotic change at the lung bases. No pulmonary consolidation is noted. IMPRESSION: Status post CABG Borderline heart size Aortic calcification Bilateral hyperinflation suggesting COPD Minimal infiltrate, atelectasis or fibrotic change at the lung bases Reviewed, dictated and finalized at location B. 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
== END ==
PROVIDERS: PCP Physician Assistant; Visit Provider Physician Assistant
DX: R91.8 Other nonspecific abnormal finding of lung field (principal); I70.0 Atherosclerosis of aorta; Z95.1 Presence of aortocoronary bypass graft
CPT/HCPCS: 71046

== ENCOUNTER 2023-08-15 18:46 | Emergency (ER) | payer MEDICARE, SELFPAY ==
[2023-08-15 18:52] VITALS: BP 134/64; PULSE 63; RESP 20; TEMP 36.6; O2SAT 96
--- NOTE | 2023-08-15 20:47 | PC.NURSE ---
Pt LWBS. Pt educated on s/s that warrant a return visit. Pt ambulatory out of dept.
== END 2023-08-15 23:05 | disposition left against medical advice (07) ==
LOC: ANHED 21:30
PROVIDERS: PCP Family Medicine
DX: Z53.21 Procedure and treatment not carried out due to patient leaving prior to being seen by health care provider (principal)
CPT/HCPCS: 99199

== ENCOUNTER 2023-09-05 15:15 | Emergency (ER) | payer MEDICARE, SELFPAY ==
--- NOTE | ~2023-09-05 | XR_ITS ---
EXAMINATION: XR heel RT min 2V DATE: 09/05/2023 15:48 INDICATION: Right heel pain. TECHNIQUE: 2 views of right calcaneus on 3 radiographs were obtained. COMPARISON: None. FINDINGS: Bone alignment is normal. No fracture. There is mild osteoarthritis of talonavicular joint. There is an enthesophyte at plantar aspect of calcaneal tuberosity. IMPRESSION: 1. No fracture. Reviewed, dictated and finalized at location E. IMPRESSION: 1. No fracture.
--- NOTE | 2023-09-05 15:16 | ED_ITS ---
HPI - Extremity Injury (Lower) General Chief Complaint: Extremity Problem,Nontraumatic Stated Complaint: Right Foot Pain Time Seen by Provider: 09/05/23 15:16 Source: patient Mode of arrival: ambulatory Limitations: no limitations History of Present Illness HPI Narrative: Patient is a 78-year-old male who presents with right heel pain that started a few days ago. Reports pain has increased and is only present when he is walking. Denies any history of gout. Denies injury to foot or ankle. States his legs are always swollen but the right seems to be a little more swollen than normal. Reports pain decreases when wearing shoes with arch support. Was recently treated doxycycline and Augmentin for cellulitis of right wrist. Related Data Home Medications Medication Instructions Recorded Confirmed aspirin 81 mg tablet,delayed 81 mg PO BID 07/30/21 09/05/23 release (Adult Aspirin Regimen) metoprolol succinate 25 mg 25 mg PO DAILY 10/05/22 09/05/23 tablet,extended release 24 hr furosemide 20 mg tablet 20 mg PO DAILY 06/16/23 09/05/23 rivaroxaban 20 mg tablet (Xarelto) 20 mg PO DAILY 07/20/23 09/05/23 Allergies Allergy/AdvReac Type Severity Reaction Status Date / Time No Known Allergies Allergy Verified 09/05/23 15:16 Review of Systems Review of Systems: All systems reviewed & are unremarkable except as noted in HPI and below Constitutional: Constitutional: Denies body ache(s), Denies chills, Denies fatigue, Denies fever(s), Denies headache(s), Denies malaise and Denies weakness Eyes: Eyes: Denies blurry vision, Denies irritation and Denies loss of vision ENT: Denies otalgia, Denies headache(s), Denies nasal discharge, Denies sinus pain and Denies sore throat Cardiovascular: Cardiovascular: Denies chest pain, Denies irregular heart rhythm and Denies dyspnea Respiratory: Respiratory: Denies dyspnea Gastrointestinal: Gastrointestinal: Denies abdominal pain, Denies melena, Denies hematochezia, Denies diarrhea, Denies nausea and Denies vomiting Musculoskeletal: Musculoskeletal: Denies back pain, Denies myalgias and Reports arthralgias Integumentary/Breasts: Skin/Breast: Denies pruritus and Denies rash Neurologic: Denies headache(s), Denies loss of vision and Denies weakness Psychiatric: Psychiatric: Reports no additional psychiatric complaints Endocrine: Endocrine: Denies fatigue PMFSH Past Medical History Medical History Atherosclerotic heart disease of [place] coronary artery with angina pectoris 2007 Atrial fibrillation BMI 29.0-29.9,adult BMI 30.0-30.9,adult BMI 31.0-31.9,adult BMI 32.0-32.9,adult Hypertension Osteoarthritis Tobacco abuse Surgical History Surgical History Hx of cataract surgery S/P CABG x 3 Family History Family History Father Family history of malignant neoplasm Sibling Family history of malignant neoplasm Mother Social History Social History Smoking packs per day: 0.5 Smoking cigarettes per day: 10.0 Years smoked: 22 Smoking pack-years: 11.00 Smoking status: Light tobacco smoker Tobacco type: cigarettes Second hand tobacco smoke exposure: Yes Alcohol intake: current Alcohol use details: 8-8 beer/year Substance use: never Substance use type: does not use Living arrangements: with family Occupation/Education: retired Additional occupation/education comments: [employer]. Gender identity (if verbalized by the patient): Male Spiritual care concerns: No Comments At time of signature, agree with nursing past medical, surgical, social and family history. There is no relevant family history pertinent to the presenting complaint. Exam Const: General: cooperative, healthy appearing, comfortable, no acute distress and well nourished Nutritional Appearance: well nourished Orientation/consciousness: patient oriented x3 Limitations: no limitations HENMT: Head: normal to inspection, normocephalic and atraumatic Ears: hea ring grossly normal bilaterally and external ears normal Face/Nose/Sinus: Normal external nose present, normal facial exam and face symmetric Face and sinus: normal facial exam and face symmetric Mouth: Yes lip normal Eyes: General: appearance normal, both eyes and all related structures Alignment and Position: alignment normal and position normal Periorbital: periorbital findings normal Eyelids: eyelids normal Pupils: Equal, round and reactive pupils present EOM: EOMs intact bilaterally Neck: Neck: normal visual inspection, full ROM and supple Chest: Chest palpation & inspection: normal inspection of the chest Resp: Effort & Inspection: normal respiratory effort and able to speak in complete sentences Auscultation: clear to auscultation bilaterally Cardio: Rate: regular rate Rhythm: regular rhythm Heart sounds: S1 normal heart sound present and S2 normal heart sound present GI: Inspection: normal to inspection Skin: General skin exam: normal color and no rashes or lesions noted Neuro: General: patient oriented x3 and moves all extremities Cranial nerves: Yes Equal, round and reactive pupils present Speech: normal speech Gait exam (Neuro): Normal gait present Extrem: General: normal to inspection, full ROM and no edema Right lower extremity: ankle Details: edema Details: non-pitting and normal ROM; no tenderness, no unusual warmth, no ecchymosis and achilles tendon exam normal and foot Details: normal capillary refill, tenderness Location: of the calcaneus Details: point tenderness (medial aspect), toes with normal ROM, no edema, vascular exam Details: dorsalis pedis pulse present and normal capillary refill and tendon exam Details: active flexion normal Location: of all toes and active extension normal Location: of all toes; no unusual warmth and no ecchymosis Psych: Appearance: grossly normal and well kempt Mental Status: mental status grossly normal Speech and movement: Normal speech and movement present Affect: normal affect Attitude: cooperative Thought process: Normal thought process present Course Course Emergency Course: Patient is aware of diagnosis, understands and agrees to treatment plan. Anticipatory guidance given. Patient agrees to follow-up as directed and is aware of reasons to seek care at the emergency department. Portions of this record may have been created with voice recognition software Level of Care: Express Care Visit Vital Signs Vital signs: Reviewed MDM - Extremity Injury (Lower) MDM Narrative Medical decision making narrative: Exam findings show no acute concerns or changes; patient is non-toxic appearing and is in no distress.? Patient is appropriate for outpatient treatment and follow-up. Discharge instructions reviewed with patient, as well as provided in writing per nursing staff. The instructions also include specific and strict return/GO TO THE ER as well as f/u information. All questions have been answered, and the patient deny any further questions with discharge and discharge plan. Differential Diagnosis Differential diagnosis: Likely ankle sprain and strain, ankle fracture and other (Foot Sprain, foot fracture, bone spur, plantar fasciitis, Achilles tendinitis) Medical Records Attestation: I reviewed the patient's medical records. Imaging Data Radiologist's impression: EXAMINATION: XR heel RT min 2V DATE: 09/05/2023 15:48 INDICATION: Right heel pain. TECHNIQUE: 2 views of right calcaneus on 3 radiographs were obtained. COMPARISON: None. FINDINGS: Bone alignment is normal. No fracture. There is mild osteoarthritis of talonavicular joint. There is an enthesophyte at plantar aspect of calcaneal tuberosity. IMPRESSION: 1. No fracture. Discharge Plan Discharge Clinical Impression: Plantar fasciitis of right foot, Bone spur of foot Patient Disposition: Home, Self-Care Condition: Stable Instructions: Plantar Fasciitis (ED), Plantar Fasciitis Exercises (ED) Additional Instructions: X-ray showed bone spur For pain, you may take: Tylenol 650-1000mg by mouth every 4-6 hours. Do not exceed 4000mg in 24 hours. Advil (Ibuprofen) 600 mg by mouth every 6 hours. Do not exceed 2400mg in 24 hours. -Minimize activities that aggravate the condition -Elevate above heart as much as possible to reduce swelling - Make sure to wear supportive shoes with good arch support -Apply ice on your plantar fascia. Ice helps decrease swelling and pain. Fill a water bottle with water and freeze it. Wrap a towel around the bottle or cover it with a pillow case. Roll the water bottle under your foot for 10 minutes each morning and evening. -Massage your plantar fascia as directed. This may help decrease swelling and pain. Roll a golf ball under your foot for 10 minutes. Repeat 3 times each day. - Do daily stretches to help relax the bottom of foot. Follow up with PCP if not improving as physical therapy may be needed. Follow up with your primary care provider for further evaluation and treatment as soon as possible OR if your symptoms persist, change or worsen significantly before you can contact your personal physician then please, without delay, go to the emergency department for further evaluation. Prescriptions: No Action aspirin [Adult Aspirin Regimen] 81 mg tablet,delayed release (DR/EC) 81 mg PO BID furosemide 20 mg tablet 20 mg PO DAILY albuterol sulfate 90 mcg/actuation HFA aerosol inhaler 2 inh inhalation QID PRN (Reason: shortness of breath or wheezing) Qty: 8.5 5RF fluticasone propionate 50 mcg/actuation spray,suspension 2 spray intranasal DAILY Qty: 16 5RF Rx Instructions: administer into each nostril albuterol sulfate 2.5 mg /3 mL (0.083 %) solution for nebulization 2.5 mg inhalation Q6H PRN (Reason: shortness of breath or wheezing) Qty: 90 3RF Xarelto 20 mg tablet 20 mg PO DAILY metoprolol succinate 25 mg tablet extended release 24 hr 25 mg PO DAILY benazepril 10 mg tablet 10 mg PO DAILY Qty: 90 3RF Rx Instructions: Take 1 tablet by mouth once daily atorvastatin 20 mg tablet 20 mg PO DAILY Qty: 90 3RF tamsulosin 0.4 mg capsule 0.4 mg PO DAILY Qty: 90 3RF finasteride 5 mg tablet 5 mg PO DAILY Qty: 90 3RF Follow-up/Referrals: Paco Croft MD [Primary Care Provider] - 3 Days Time of Disposition: 16:06
[2023-09-05 15:28] VITALS: BP 91/43; PULSE 70; RESP 20; TEMP 36.6; O2SAT 97
[2023-09-05 15:42] VITALS: BP 128/58
== END 2023-09-05 16:08 | disposition home or self-care (01) ==
PROVIDERS: Emergency Provider Nurse Practitioner Family; PCP Family Medicine
DX: M72.2 Plantar fascial fibromatosis (principal); M77.31 Calcaneal spur, right foot; F17.210 Nicotine dependence, cigarettes, uncomplicated; I25.110 Atherosclerotic heart disease of native coronary artery with unstable angina pectoris; I48.91 Unspecified atrial fibrillation; I10 Essential (primary) hypertension; M19.90 Unspecified osteoarthritis, unspecified site; Z95.1 Presence of aortocoronary bypass graft; Z79.82 Long term (current) use of aspirin
CPT/HCPCS: 73650; 99213; G0463

== ENCOUNTER 2024-06-13 08:33 | Outpatient (CLI) | payer MEDICARE, SELFPAY ==
--- NOTE | ~2024-06-13 | XR_ITS ---
Clinical Indication: Bronchitis PA and lateral views of the chest: Comparison: 06/16/2023 Findings: There is central congestive change and probable minimal bibasilar pulmonary edema. Cardiom ediastinal silhouette is stable, status post probable CABG. Bones and soft tissues are unremarkable. Impression: Central congestive change and minimal bibasilar pulmonary edema. Stable cardiomegaly, status post CABG. Reviewed, dictated and finalized at location . 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 Stable cardiomegaly, status post CABG.
== END 2024-06-13 08:34 | disposition home or self-care (01) ==
LOC: MICIMG 08:34
PROVIDERS: PCP Family Medicine; Visit Provider Nurse Practitioner Family
DX: I50.20 Unspecified systolic (congestive) heart failure (principal); I51.7 Cardiomegaly; Z95.1 Presence of aortocoronary bypass graft; J40 Bronchitis, not specified as acute or chronic
CPT/HCPCS: 71046

== ENCOUNTER 2024-06-27 08:13 | Outpatient (CLI) | payer MEDICARE, SELFPAY ==
--- NOTE | ~2024-06-27 | CT_ITS ---
Clinical Indication: Chronic pulmonary edema CT Scan of the Chest with Contrast: Technique: Contiguous sections were acquired throughout the chest after intravenous administration of 85 cc of Omnipaque 350. Dose reduction technique was used on this scan by utilizing automated exposu re control and iterative reconstruction technique. The dose-length product (DLP) was 536.91 mGy-cm. Findings: There is no evidence of any significant mediastinal, hilar or axillary lymphadenopathy. There is no f illing defect in the pulmonary arterial tree to suggest pulmonary embolus. There is no evidence of ao rtic dissection or aneurysm. There is no evidence of pleural or pericardial effusion. The lungs are clear. No pulmonary nodules or infiltrates are noted. There is mild emphysema. Images through the upper abdomen reveal no abnormalities. Moderate to severe T7 compression fracture present. Impression: Clear lungs. Mild emphysema. Moderate to severe T7 compression fracture. Reviewed, dictated and finalized at [facility]. 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 Mild emphysema. Moderate to severe T7 compression fracture.
[2024-06-27 08:36] LABS: Estimated Glomerular Filt Rate 54
== END 2024-06-27 08:14 | disposition home or self-care (01) ==
PROVIDERS: PCP Internal Medicine Cardiovascular Disease; Visit Provider Nurse Practitioner Family
DX: J43.9 Emphysema, unspecified (principal); S22.060A Wedge compression fracture of T7-T8 vertebra, initial encounter for closed fracture; X58.XXXA Exposure to other specified factors, initial encounter; J81.1 Chronic pulmonary edema; Z72.0 Tobacco use
CPT/HCPCS: 71260; Q9967

== ENCOUNTER 2024-07-28 06:52 | Outpatient (CLI) | payer MEDICARE, SELFPAY ==
--- NOTE | ~2024-07-28 | US_ITS ---
EXAMINATION: US carotid duplex BI DATE: 07/28/2024 08:05 INDICATION: Syncope and collapse. TECHNIQUE: Grayscale, color Doppler, and pulsed Doppler images of the cervical carotid arteries were obtained. The degree of vessel stenosis is placed in one of the following categories: normal, <50%, 5 0-69%, >=70% but less than near-occlusion, near-occlusion, or total occlusion. Note that percent sten osis relative to normal distal artery lumen diameter is indirectly measured from velocity measurement s as described by Alvaro, et al. Radiology 2003; 229:340-346. COMPARISON: None. FINDINGS: RIGHT: The right common carotid artery (CCA) peak systolic velocity (PSV) is 76 cm/s. The right internal car otid artery (ICA) PSV is 78 cm/s. The right ICA end-diastolic velocity (EDV) is 16 cm/s. The right IC A/CCA PSV ratio is 1.0. Grayscale and color Doppler images yield an estimate of <50% diameter reducti on from plaque in the ICA. There is antegrade flow in the right vertebral artery. LEFT: The left CCA PSV is 63 cm/s. The left ICA PSV is 87 cm/s. The left ICA EDV is 18 cm/s. The left ICA/C CA PSV ratio is 1.4. Grayscale and color Doppler images yield an estimate of <50% diameter reduction from plaque in the ICA. There is antegrade flow in the left vertebral artery. IMPRESSION: 1. <50% stenosis in the right internal carotid artery. 2. <50% stenosis in the left internal carotid artery. Reviewed, dictated and finalized at location L.
--- OUTSIDE RECORDS SUMMARY | 2024-07-28 06:56 | XMS_ITS | Clinical Summary ---
Author Organization [facility] Address [address] [place] [address] Phone Care Team Providers Care Spool Worker Name Role Phone Paco Croft MD Primary Care Provider [phone] Sol Hare APN, DINNER COOK Unavailable Marvel Calero MD Unavailable [phone] Allergies No known active allergies Medications benazepril (LOTENSIN) 10 MG Tablet Take 10 mg by mouth daily. Active atorvastatin (LIPITOR) 20 MG Tablet Take 20 mg by mouth daily. Active aspirin EC 81 MG Tablet Delayed Response Take 81 mg by mouth daily. Active cyclobenzaprine (FLEXERIL) 10 MG Tablet 11/12/2017 Active traMADol (ULTRAM) 50 MG Tablet 11/23/2017 Active tamsulosin (FLOMAX) 0.4 MG CapsuleIndication s:Benign prostatic hyperplasia with lower urinary tract symptoms Take 1 Cap by mouth daily. 90 Cap 3 12/18/2019 Active finasteride (PROSCAR) 5 MG TabletIndications :Benign prostatic hyperplasia with lower urinary tract symptoms Take 1 Tab by mouth daily. 90 Tab 3 12/18/2019 Active Active Problems Problem Noted Date Diagnosed Date BPH w urinary obs/LUTS 11/29/2015 Hydrocele, right 11/29/2015 Unilateral inguinal hernia 11/29/2015 Immunizations Immunization Administration Dates Next Due Covid-19, Mrna, Lnp-s, PF, 1 00 mcg/0.5 mL Dose (Moderna) 07/19/2020,06/21/2020 Family History Medical History Relation Name Comments Lung Cancer Father No Known Problems Mother Relation Name Status Comments Father Mother Social History Tobacco Use Types Packs/Day Years Used Date Smoking Tobacco: Some Days Cigars Smokeless Tobacco: Never Tobacco Cessation:Ready to Q uit: Yes; Counseling Given: Yes Comments:still smoking occasionally, trying to quit Alcohol Use Standard Drinks/Week Comments Yes 0 (1 standard drink = 0.6 oz pur e alcohol) occasionally Sexually Active Control Partners Comments Yes Female Sex and Gender Information Value Date Recorded Sex Assigned at Not on file Legal Sex Male 2:03 PM CDT Gender Identity Not on file Sexual Orientation Not on file Last Filed Vital Signs Vital Sign Reading Time Taken Comments Blood Pressure 150/80 12/18/2019 9:46 AM CDT Pulse 68 12/18/2019 9:46 AM CDT Temperature 35.9 C (96.7 F) 12/18/2019 9:46 AM CDT Respiratory Rate 16 12/18/2019 9:46 AM CDT Oxygen Saturation 98% 12/18/2019 9:46 AM CDT Inhaled Oxygen Concentration - - Weight 101.7 kg (224 lb 3.2 oz) 12/18/2019 9:46 AM CDT Height 180.3 cm (5' 11 ) 12/18/2019 9:46 AM CDT Body Mass Index 31.27 12/18/2019 9:46 AM CDT Plan of Treatment Health Maintenance Due Date Last Done Comments Hepatitis C Virus (HCV) Screening 1945 TdaP Immunization 1945 Respiratory Syncytial Virus (RSV) Immunization (Adult) (1 - 1-dose 75+ series) 2022 Pneumococcal Immunization (50+ years) (3 of 3 - PCV20 or PCV21) 02/12/2023 02/12/2018, 05/26/2012 Influenza Immunization (#1) 01/16/202412/16, 02/19/2019, 02/12/2018, Additional history exists SARS-COV-2 Immunization ( season) 2024 08/30/2021, 03/28/2021, 07/19/2020, Additional history exists Pneumococcal Immunization Combined Discontinued 02/12/2018, 05/26/2012 Zoster Immunization Completed 04/02/2020, 0 Hepatitis B Immunization Aged Out No longer eligible based on patient's age to complete this topic Meningococcal Immunization (ACWY) Aged Out No longer eligible based on patient's age to complete this topic Rotavirus Immunization Aged Out No lo nger eligible based on patient's age to complete this topic Medical Devices Implanted Type Area Zipper Repairer Device Identifier Shelf Expiration Date Model / Serial / Lot Mesh Bard 3d Max Med 3x5in R - [id number] Implanted:Qty : 1 on 12/19/2015 by Marvel Calero MD at [facility] IMPLANT Right: Groin CR BARD / DAVOL 10/15/2017 [id number] / / [id number] Insurance [facility] MEDICARE MEDICARE Member Subscriber Plan / Payer (Ef fective for All Dates) Name:Peyman Chadwick Member ID:[id number] Relation to Subscriber:Self Name:Peyman Chadwick Subscriber ID:[id number] Payer ID:[id number] Group ID:Not on file Type:Not on file Address: [facility] [address] [facility] [employer] [facility] [place] [address] Care Teams Spool Worker Relationship Specialty Start Date End Date Paco Croft MD [address] [address] PCP - General Family Medicine 11/29/15 Sol Hare APN, DINNER COOK -[place] [address] Nurse Practitioner Advanced Practice Nurse 11/29/15 Marvel Calero MD [place] [address] General Surgery 12/12/15
--- OUTSIDE RECORDS SUMMARY | 2024-07-28 06:57 | XMS_ITS | Referral Summary ---
Author Organization [facility] Virtual Care Address [facility] [place] [address] Phone Care Team Providers Care Auto Parts Handler Name Role Phone Paco Croft MD Primary Care Provider Allergies No known active allergies Medications aspirin 81 mg tablet Take one by mouth two times per day 0 12/23/19 08 Active tamsulosin (FLOMAX) 0.4 mg capsule,extended release 24hr take 1 capsule by oral route every day 1/2 hour following the same meal each day 0 0 02/08/20 14 Active finasteride (PROSCAR) 5 mg tablet take 1 tablet by oral route every day 0 0 11/15/19 15 Active atorvastatin (LIPITOR) 20 mg tablet take 1 tablet by oral route every day 0 0 11/15/19 15 Active benazepril (LOTENSIN) 10 mg tablet take 1 tablet by oral route every day 0 0 02/21/20 15 Active furosemide (LASIX) 20 mg tabletIndication s:Coronary artery disease involving [place] coronary artery of [place] heart without angina pectoris Take 1 tablet (20 mg total) by mouth daily 90 tablet 3 12/14/19 24 025 Active metoprolol XL (TOPROL-XL) 25 mg extended release tablet Take 1 tablet by mouth once daily 90 tablet 2 03/16/20 24 Active Xarelto 20 mg tabletIndication s:New onset atrial fibrillation (HCC) TAKE 1 TABLET BY MOUTH ONCE DAILY WITH SUPPER 90 tablet 07/11/19 25 Active Xarelto 20 mg tabletIndication s:New onset atrial fibrillation (HCC) TAKE 1 TABLET BY MOUTH ONCE DAILY WITH SUPPER 90 tablet 04/17/20 24 025 Discontinued Active Problems Problem Noted Date Diagnosed Date Longstanding persistent atrial fibrillation 11/16 DIANA (obstructive sleep apnea) 12/04/2022 Witnessed episode of apnea 09/08/2022 Hypersomnolence 09/08/2022 Lipid screening 07/30/2021 Junctional tachycardia 07/30/2021 Low back pain 05/20/2018 Coronary artery disease invo lving [place] coronary artery of [place] heart without angina pectoris 01/14/2017 HTN (hypertension), benign 01/14/2017 Tobacco abuse 01/14/2017 Hyperlipidemia LDL goal <70 01/14/2017 Multiple vessel coronary artery disease 09/28/19 15 Resolved Problems Problem Noted Date Diagnosed Date Resolved Date New onset atrial fibrillation 05/21/2022 12/14/2023 Social History Tobacco Use Types Packs/Day Years Used Date Smoking Tobacco: Some Days Cigarettes Smokeless Tobacco: Never Tobacco Cessation:Ready to Q uit: Not Asked; Counseling Given: Not Answered Comments:Smoking History Packs/day: 0.3 Packs Alcohol Use Standard Drinks/Week Comments Yes 0 (1 standard drink = 0.6 oz pur e alcohol) Sex and Gender Information Value Date Recorded Sex Assigned at Not on file 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 Gender Identity Not on file Sexual Orientation Not on file Last Filed Vital Signs Vital Sign Reading Time Taken Comments Blood Pressure 124/78 12/14/2023 8:02 AM CDT Pulse 60 12/14/2023 8:02 AM CDT Temperature 37.2 C (99 F) 08/15/2023 6:15 PM CDT Respiratory Rate 18 12/14/2023 8:02 AM CDT Oxygen Saturation 95% 08/15/2023 6:15 PM CDT Inhaled Oxygen Concentration - - Weight 105.2 kg (232 lb) 12/14/2023 8:02 AM CDT Height 180.3 cm (5' 11 ) 12/14/2023 8:02 AM CDT Body Mass Index 32.36 12/14/2023 8:02 AM CDT Plan of Treatment Not on file Insurance [employer] MEDICARE [employer] OPEN ACCESS MEDICARE AETNA MEDICARE Care Teams Auto Parts Handler Relationship Specialty Start Date End Date Paco Croft MD PCP - General 08/14/16
--- OUTSIDE RECORDS SUMMARY | 2024-07-28 06:57 | XMS_ITS | Clinical Summary ---
Author Organization [facility] Virtual Care Address [facility] [place] [address] Phone Care Team Providers Care Genetic Physician Name Role Phone Paco Croft MD Primary [...] 20 mg tabletIndication s:Coronary artery disease involving [place] coronary artery of [place] heart without angina pectoris Take 1 tablet [...] pain 05/20/2018 Coronary artery disease invo lving [place] coronary artery of [place] heart without angina pectoris 01/14/2017 HTN (hypertension), benign 01/14/2017 Tobacco abuse 01/14/2017 Hyperlipidemia LDL goal <70 01/14/2017 Multiple vessel coronary artery disease 09/28/19 15 Resolved Problems Problem Noted Date Diagnosed Date Resolved Date New onset atrial fibrillation 05/21/2022 12/14/2023 Medical History Medical History Date Comments Osteoarthritis Osteoarthritis Hypertension 2007 Hypertension Chronic coronary artery disease 2007 Coronary Artery Disease Adiposity Obesity Hx Other Medical Dyslipidemia Hx Other Medical fractured thumb Family History Medical History Relation Name Comments Heart attack Brother 2 3 Myocardial Infa rction; Cause of : Myocardial Infarction Other Brother 3 Leukemia, AML; Cause of : Leukemia, AML Cancer Father Cancer; Cause o f : Cancer Other Mother Natural causes; Cause of : Natural causes Relation Name Status Comments Brother 1 (Age 64) Brother 2 3 Brother 3 Father (Age 68) Mother (Age 95) Social History Tobacco Use Types Packs/Day Years [...] on file 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 Gender Identity Not on file Sexual Orientation Not on file Obstetrics History Last Filed Vital Signs Vital Sign Reading [...] 12/14/2023 8:02 AM CDT Plan of Treatment Health Maintenance Due Date Last Done Comments Depression Screening 1945 Fall Risk Assessment 1945 Hepatitis C Screening 1945 DTaP/Tdap/Td Vaccine (1 - Tdap) 1958 Hepatitis B Screening 1965 Zoster Vaccine (1 of 2) 1997 Abdominal Aortic Aneurysm (A AA) Screen 2012 Well Visit 65+ 2012 Pneumococcal vaccine 65+ (3 of 3 - PCV20 or PCV21) 02/12/2023 02/12/2018, 05/26/2012 Covid-19 Vaccine (3 - 2023-2 5 season) 2024 07/19/2020, 06/21/2020 Influenza Vaccine (#1) 2024 9, 02/12/2018, 05/07/2017, Additional history exists Insurance [employer] MED[employer]ARE [employer] OPEN ACCESS Member Subscriber Plan / Payer ( fective 2017-Present) Name:Peyman Chadwick Member ID:[id number] Relation to Subscriber:Self Name:Peyman Chadwick Subscriber ID:[id number] Payer ID:[id number] Type:[employer] HMO/PPO Address: [address] [place] [address] MEDICARE [facility] MED[facility] Care Teams Genetic Physician Relationship Specialty Start Date End Date Paco Croft MD [facility] - General 08/14/16
--- OUTSIDE RECORDS SUMMARY | 2024-07-28 06:57 | XMS_ITS | Patient Health Record ---
Author Organization [facility] Address [address] [place], [place] [id number] Care Team Providers Care Surgical Nurse Practitioner Name Role Phone Paco Croft Primary Care Provider Luis Antonio Rodriguez Unavailable [phone] Luc Chase Unavailable Unavailable Reason For Referral No Information Medications Medication SIG (Take, Route, Fr equency, Duration) Notes Start Date End Date Status Stool Softener 100 MG Orally twice a day Active Furosemide 40 MG 1 tablet Orally Once a day Active Midodrine HCl 5 MG 1 tablet Orally 1 ta blet every 8 hrs Active Amiodarone HCl 200 MG Orally take 2 tabl ets twice daily for 3 days then 1 tabl twice daily Active Xarelto 15 MG Orally at bedtime Active atorvastatin 20mg daily Active Finasteride 5 MG 1 tablet Orally Once a day Active Aspirin 81 MG 1 tablet Orally Once a day Active Tamsulosin 0.4mg 1 tablet daily 30 minutes after meal Active Klor-Con M20 20 MEQ 1 tablet Orally once a day Active Crestor 10 MG 1 tablet Orally Once a day Active Problems Problem Type SNOMED Code ICD Code Onset Dates Problem Status W/U Status Risk Notes Problem Coronary artery disease (74927429) CAD (429.2) Active confirmed Low Plan Of Treatment Pending Test Test Name Order Date Magnesium 10/19/2014 Renal Panel 10/19/2014 Insurance Providers Payer Name Payer Address Payer Phone Subscriber Number Group Number Insured Name Patient Relationship to Insured Coverage Start Date Coverage End Date [employer] [address] [place] [address] [id number] EfraPeyman sweet Self - patient is the insured [employer] Medicare [place] Part [place] Secondary [address] [address] [place] [address] [id number] Fuesting , Peyman Self - patient is the insured Medical (General) History Medical History History ICD Code BPH HTN CAD Surgical History Surgery Date(Month/Year) CABG knee surgery years ago
--- OUTSIDE RECORDS SUMMARY | 2024-07-28 06:57 | XMS_ITS | Clinical Summary ---
Author Organization [facility] Address [address] [place] [address] Care Team Providers Care Well Surveying Engineer Name Role Phone Paco Croft MD Primary Care Provider [phone] Allergies No known active allergies Medications No known medications Social History Tobacco Use Types Packs/Day Years Used Date Smoking Tobacco: Unknown Sex and Gender Information Value Date Recorded Sex Assigned at Male 08/17/2023 11:02 AM CDT Legal Sex Male 11:47 AM CDT Gender Identity Male 08/17/2023 11:02 AM CDT Sexual Orientation Straight 08/17/2023 11 :02 AM CDT Last Filed Vital Signs Vital Sign Reading Time Taken Comments Blood Pressure 141/64 08/15/2023 9:49 PM CDT Pulse 71 08/15/2023 9:49 PM CDT Temperature 37.2 C (99 F) 08/15/2023 9:49 PM CDT Respiratory Rate 20 08/15/2023 9:49 PM CDT Oxygen Saturation 94% 08/15/2023 9:49 PM CDT Inhaled Oxygen Concentration - - Weight 102.1 kg (225 lb) 08/15/2023 9:49 PM CDT Height 177.8 cm (5' 10 ) 08/15/2023 9:49 PM CDT Body Mass Index 32.28 08/15/2023 9:49 PM CDT Plan of Treatment Health Maintenance Due Date Last Done Comments Hepatitis C 1963 DTaP, Tdap and Td Vaccines (1 - Tdap) 1966 Annual Medicare Wellness Visit 2012 Pneumococcal Vaccine: 65+ Years (3 of 3 - PPSV23 or PCV20) 02/12/2023 02/12/2018, 05/26/2012 COVID-19 Vaccine ( season) 2024 02/05/2022, 08/30/2021, 03/28/2021, Additional history exists Influenza Adult (#1) 2024 02/19/2019, 02/12/2018, 05/07/2017, Additional history exists Zoster Vaccines Completed 04/02/2020, 01/09/2020 RSV Immunization or 60+ Years Completed 01/27/2023 Meningococcal B Vaccine Aged Out No l onger eligible based on patient's age to complete this topic Meningococcal Vaccine Aged Out No arthur manny eligible based on patient's age to complete this topic RSV Immunizations Under 20 Months Aged Out No longer eligible based on patient's age to complete this topic Insurance [facility]ICARE [facility] AETNA Care Teams Well Surveying Engineer Relationship Specialty Start Date End Date Paco Croft MD [address] [address] PCP - General FAMILY PRACTICE 07/09/23
--- NOTE | 2024-07-28 07:50 | ECHO_ITS ---
Patient Info Name: Peyman Chadwick Age: 79 years : 1945 Gender: Male Ht: 70 in Wt: 230 lbs BSA: 2.30 m2 Heart Rhythm: Atrial Fibrillation Technical Quality: Fair Exam Date: 07/28/2024 8:06 AM Exam Location: Echo Lab Patient Status: Outpatient Admit Date: 07/28/2024 Staff Ordering Physician: Arlene Francis Ballet Teacher: Rolanda Cho RDCS Attending Provider: Arlene Francis Referring Physician: Tito VARELA; Exam Type: CA echo dop color flow w con Study Info Indications - Syncope and collapse Complete two-dimensional, color flow and Doppler transthoracic echocardiogram is performed with contrast to opacify the left ventricle and to improve the deliniation of the left ventricle endocardial borders. Contrast/Agitated Saline Contrast/Ag. Saline: Definity Amount: 2.00 ml IV Access Condition: patent with no signs of infiltration New IV Access: Right Site Condition: IV removed Summary 1. Left ventricular chamber dimension is normal. 2. Left ventricular systolic function is normal, estimated at 60-65%. 3. There is mildly increased left ventricular wall thickness. 4. Right ventricular chamber dimension is mildly enlarged. 5. Right ventricular systolic function is normal. 6. Left atrial chamber dimension is severely enlarged. 7. Right atrial chamber dimension is severely enlarged. 8. There is mild mitral valve regurgitation. 9. There is mild tricuspid valve regurgitation. 10. Pulmonary hypertension, estimated pulmonary arterial systolic pressure is 57 mmHg. Left Ventricle Left ventricular chamber dimension is normal. Left ventricular systolic function is normal, estimated at 60-65%. There is mildly increased left ventricular wall thickness. Left ventricular septal wall motion is abnormal with septal motion related to a post-operative state. The left ventricular diastolic function is abnormal. Right Ventricle Right ventricular chamber dimension is mildly enlarged. Right ventricular systolic function is normal. Left Atria Left atrial chamber dimension is severely enlarged. Right Atria Right atrial chamber dimension is severely enlarged. Atrial Septum Intact interatrial septum visualized by color flow imaging. Aortic Valve The aortic valve is probable trileaflet. There is no aortic valve stenosis. There is no aortic valve regurgitation. There is moderate aortic valve calcification. Pulmonic Valve The pulmonic valve is not well visualized. There is trace pulmonic regurgitation. Mitral Valve There is mild mitral valve regurgitation. Tricuspid Valve There is mild tricuspid valve regurgitation. Pulmonary hypertension, estimated pulmonary arterial systolic pressure is 57 mmHg. Pericardium/Pleural There is no pericardial effusion. Inferior Vena Cava Dilated inferior vena cava with <50% collapse upon inspiration consistent with elevated right atrial pressure, 15 mmHg. Aorta The aortic root size at the sinus of Valsalva is normal. Left Ventricular Outflow Tract Name Value Normal LVOT 2D LVOT Diameter 2.24 cm LVOT Doppler LVOT Peak Gradient 2 mmHg LVOT Mean Gradient 1 mmHg LVOT VTI 22.26 cm LVOT VTI/AV VTI Ratio 0.64 LVOT Stroke Volume 87.98 ml LVOT CO 12.44 l/min LVOT CI 5.40 L/min/m2 Pulmonic Valve Name Value Normal PV Doppler PV Peak Gradient 2 mmHg Mitral Valve Name Value Normal MV Doppler MV Decel Murray 464.00 cm/s2 MV PHT 0 s MV Area (PHT) 3.40 cm2 4.00-5.00 MV Diastolic Function MV E Peak Velocity 103.60 cm/s MV A Peak Velocity 2.94 cm/s MV E/A 35.22 MV Decel Time 0 s MV Annular TDI MV E/e' (Septal) 12.29 <=8.00 MV E/e' (Lateral) 7.91 <=8.00 MV E/e' (Average) 10.10 Tricuspid Valve Name Value Normal TV Regurgitation Doppler TR Peak Velocity 322.16 cm/s TR Peak Gradient 42 mmHg Estimated PAP/RSVP RA Pressure 15 mmHg <=5 PA Systolic Pressure 57 mmHg <36 RV Systolic Pressure 57 mmHg <36 Aorta Name Value Normal Ascending Aorta Ao Root Diameter (MM) 4.21 cm Ao Root Diam Index (MM) 1.83 cm/m2 Aortic Valve Name Value Normal AV Doppler AV Peak Velocity 142.52 cm/s AV Peak Gradient 8 mmHg AV Mean Gradient 5 mmHg AV VTI 35.04 cm AV Area (Cont Eq VTI) 2.51 cm2 >=3.00 AV Area (Cont Eq Herrera) 2.18 cm2 AV Regurgitation 2D LVOT Area 3.95 cm2 Ventricles Name Value Normal LV Dimensions 2D/MM IVS Diastolic Thickness (2D) 1.12 cm 0.60-1.00 LVID Diastole (2D) 5.43 cm 4.20-5.80 LVIW Diastolic Thickness (2D) 1.08 cm 0.60-1.00 LVID Systole (2D) 3.69 cm 2.50-4.00 LVOT Diameter 2.24 cm LV Mass (2D Cubed) 237.63 g 88.00-224.00 LV Mass Index (2D Cubed) 0.01 g/cm2 0.00-0.01 Relative Wall Thickness (2D) 0.40 LV Fractional Shortening/Ejection Fraction 2D/MM LV Fractional Shortening (2D) 32 % 25-43 LV EF (2D Teicholz) 60 % 52-72 LV Diastolic Volume (4C MOD) 83.34 ml LV EF (4C MOD) 66 % LV Diastolic Volume (2C MOD) 59.38 ml LV EF (2C MOD) 69 % LV Diastolic Volume (BP MOD) 73.33 ml 62.00-150.00 LV Diastolic Volume Index (BP MOD) 0.03 l/m2 0.03-0.07 LV Systolic Volume (BP MOD) 24.24 ml 21.00-61.00 LV Systolic Volume Index (BP MOD) 0.01 l/m2 0.01-0.03 LV EF (BP MOD) 67 % 52-72 LV Diastolic Length (4C) 7.85 cm LV Systolic Length (4C) 6.59 cm LV Stroke Volume (4C MOD) 55.07 ml RV Dimensions 2D/MM RVID Diastole (2D) 4.09 cm 2.50-3.50 Atria Name Value Normal LA Dimensions LA Dimension (MM) 4.14 cm 3.00-4.10 LA Volume (4C A-L) 104.89 ml LA Volume (BP A-L) 104.36 ml RA Dimensions RA Area (4C) 38.17 cm2 <=18.00 Report Signatures
[2024-07-28] MEDS: PERFLUTREN LIPID MICROSPHERES 1.5 ML VIAL DILUTED TO 10 ML TOTAL VOLUME IV PUSH (08:30)
--- NOTE | 2024-07-28 12:36 | IVDEFINITY ---
Prior to administration of IV Definity the patient was educated on the risks and benefits of the imaging enhancing agent including potential adverse side effects. The patient verbalized understanding. Allergies were verified. No exclusion criteria were identified and at least one of the following inclusion criteria were met: 1) physician request, 2) patient technically difficult to image (per the [place] [employer] Echocardi[employer] guidelines of two or more segments not discernable within the apical view), or 3) questionable left ventricular function. ?
== END 2024-07-28 06:53 | disposition home or self-care (01) ==
PROVIDERS: PCP Family Medicine; Visit Provider Nurse Practitioner Family
DX: R55 Syncope and collapse (principal)
CPT/HCPCS: 93880; C8929; Q9957

== ENCOUNTER 2024-10-18 09:22 | Outpatient (CLI) | payer MEDICARE, SELFPAY ==
--- NOTE | ~2024-10-18 | MR_ITS ---
MRI of the brain Clinical History: Amnesia Technique: Axial and sagittal T1-weighted images were acquired. These were followed by axial T2-weigh coral, diffusion weighted, gradient, and FLAIR images. Findings: No significant signal abnormality seen in the brain parenchyma. No acute infarct, intracran ial hemorrhage, or mass lesion. Ventricles and subarachnoid spaces are unremarkable. Orbits are unremarkable. Paranasal sinuses and m astoid air cells are clear. Major intracranial flow voids are intact. Sagittal midline structures are intact. IMPRESSION: Unremarkable exam. Reviewed, dictated and finalized at location M. IMPRESSION: Unremarkable exam.
== END 2024-10-18 09:23 | disposition home or self-care (01) ==
LOC: MICIMG 09:23
PROVIDERS: PCP Family Medicine; Visit Provider Nurse Practitioner Family
DX: R41.3 Other amnesia (principal)
CPT/HCPCS: 70551